=== PATIENT | male | born 1965 | race Hispanic/Latino ===

== ENCOUNTER 2016-03-18 17:07 | Inpatient (IN) | payer SELFPAY ==
--- NOTE | 2016-03-18 18:04 | Emergency Department Report ---
Stated Complaint: LACERATION Time Seen by Provider: 03/18/16 17:59 - HPI History of Present Illness: 50-year-old male comes in by ambulance for having a fall on the [employer]. Security found patient down the hill put him back to the emergency room. Patient is noted to have a large hematoma in the right eyebrow. Some active bleeding nurse applied a 4 x 4. Patient's evaluation in triage patient was noted to start crying and grabbing his chest and his left side of his neck. He shouldn't inform her that he may be going through DTs. He wants to be detoxed - Exam Physical Exam: Patient is alert, noticed a nice hematoma on the right eyebrow is tender to touch. Cardiovascular irregular respiratory clear to auscultation MSE screening note: Focused history and physical exam performed. Due to findings the following was ordered: Patient will have labs and a CAT scan discussed with Dr. Tellez ED Disposition for MSE Condition: Stable
[2016-03-18] MEDS ORDERED: VITAMIN B-1 100 MG, FOLVITE 1 MG, INFUVITE 10 ML in NACL 0.9% 1000 ML 1,000 ML IV ONE (23:13)
[2016-03-18] MEDS ORDERED: XYLOCAINE 1% 20 mL INFILTRATI ONE (23:13)
--- NOTE | 2016-03-18 23:25 | Emergency Department Report ---
HPI - General Chief Complaint: Wound/Laceration Time Seen by Provider: 03/18/16 17:59 - HPI HPI: This is a 50-year-old male who presents to the emergency department via EMS with multiple complaints. Patient had a fall earlier today on a [employer]. It caused a laceration to the right eyebrow. Patient says he remembers the incident and denies any loss of consciousness. The headache, neck pain, vision change or any neurological deficits. Patient also complains of midsternal left-sided chest pain that has started soon as he got on the ambulance. There has been going on since. It is a low aching sensation and radiates towards the left shoulder. Patient has a history of NV in 2014 but denies any stents or previous CABG. Finally, the patient admits to alcohol use today. He says he only has had 2 beers but does appear slightly intoxicated. On top of that he says he has a history of delirium tremens and says he is concerned he may go into DTs again and is hoping for detox. He denies any illicit drug use or abuse. He does not currently have a primary care doctor. ED Past Medical Hx - Medications Home Medications: Home Medications Medication Instructions Recorded Confirmed Last Taken Type No Known Home Medications [No 03/19/16 03/19/16 Unknown History Reported Home Medications] ED Review of Systems ROS: Stated complaint: LACERATION Other details as noted in HPI Comment: All other systems reviewed and negative Constitutional: denies: chills, fever Eyes: denies: eye pain, eye discharge, vision change ENT: denies: ear pain, throat pain Respiratory: denies: cough, shortness of breath, wheezing Cardiovascular: chest pain, palpitations Gastrointestinal: denies: abdominal pain, nausea, diarrhea Genitourinary: denies: urgency, dysuria Musculoskeletal: denies: back pain, joint swelling Skin: denies: rash, lesions Neurological: other (tremors). denies: headache, weakness Physical Exam - Physical Exam Vital Signs: Vital Signs 03/18/16 03/18/16 17:42 21:12 Temperature 97.9 F 97.9 F Pulse Rate 99 H 86 Respiratory 20 18 Rate Blood Pressure 146/98 Blood Pressure 145/94 [Right] O2 Sat by Pulse 98 96 Oximetry Physical Exam: GENERAL: The patient is well-developed well-nourished. Patient is slightly disheveled and appears intoxicated. HEENT: Normocephalic. Extraocular motions are intact. Patient has moist mucous membranes. Pupils equally reactive to light bilaterally. Fatigable horizontal nystagmus. NECK: Supple. Trachea is midline. CHEST/LUNGS: Clear to auscultation. There is no respiratory distress noted. HEART/CARDIOVASCULAR: Regular. There is no tachycardia. There is no gallop rub or murmur. ABDOMEN: Abdomen is soft, nontender. Patient has normal bowel sounds. There is no abdominal distention. SKIN: There is a 2 cm laceration to the right eyebrow that is linear and superficial. No foreign body seen. No current bleeding. NEURO: The patient is awake, alert. The patient is easily agitated. He is sometimes cooperative but often needs redirection. The patient has no focal neurologic deficits. The patient has normal speech. Patient appears intoxicated. MUSCULOSKELETAL: There is no tenderness or deformity. There is no limitation range of motion. There is no evidence of acute injury. ED Course Vital Signs 03/18/16 03/18/16 17:42 21:12 Temperature 97.9 F 97.9 F Pulse Rate 99 H 86 Respiratory 20 18 Rate Blood Pressure 146/98 Blood Pressure 145/94 [Right] O2 Sat by Pulse 98 96 Oximetry - Laceration /Wound Repair Right Face Wound Location: face (Right eyebrow) Wound Length (cm): 2 Wound's Depth, Shape: superficial, linear Wound Explored: clean Anesthesia: 1% Lidocaine Volume Anesthetic (ccs): 2 Wound Repaired With: sutures Suture Size/Type: 6:0, proline Number of Sutures: 5 Layer Closure?: No Sterile Dressing Applied?: Yes ED Medical Decision Making - Lab Data Result diagrams: 03/18/16 23:27 03/18/16 23:27 - EKG Data -: EKG Interpreted by Me EKG shows normal: sinus rhythm, axis, intervals, QRS complexes (q waves to the anterior septal leads.), ST-T waves Rate: normal - EKG Data When compared to previous EKG there are: previous EKG unavailable Interpretation: other (q waves to the anteroseptal leads) - Radiology Data Radiology results: report reviewed, image reviewed interpreted by me: Chest x-ray did not show any acute process. Heart is normal shape and size. No effusions. No pneumothorax. No signs of pneumonia seen. CT of the head does not show any acute process including no hemorrhage, mass, shift, diffuse edema or skull fracture. - Medical Decision Making 50-year-old male presents via EMS after having a fall causing a laceration, with alcohol intoxication, and the complaint of chest pain. Patient says he is already up-to-date with tetanus. Laceration was repaired with simple interrupted sutures. CT of the head did not show any bleed, shift, mass, fracture or any acute process. EKG does not show any signs of ST elevation NV. Chest x-ray does not show any acute process. Patient's blood alcohol level came back 5 times greater than the legal limit at 0.4. He was given IV fluid resuscitation, thiamine and multivitamins. Patient has a history of delirium tremens and complaints of some tremors but does not appear yet to be in DTs and the detox as he is acutely intoxicated. Vital signs stable throughout his ED course. Patient will be admitted to hospital for further IV fluid resuscitation , monitoring while he becomes sober and detoxes, and for further evaluation of his chest discomfort. Patient has been accepted for admission by the hospitalist, Dr gonsalez. - Differential Diagnosis alcohol abuse/intoxication, delirium tremens, NV, costochondritis Critical Care Time: No Critical care attestation.: If time is entered above; I have spent that time in minutes in the direct care of this critically ill patient, excluding procedure time. ED Disposition Clinical Impression: Alcohol abuse, Hypokalemia, Hypokalemia Alcohol intoxication Qualifiers: Complication of substance-induced condition: with unspecified complication Qualified Code(s): F10.129 - Alcohol abuse with intoxication, unspecified Facial laceration Qualifiers: Encounter type: initial encounter Qualified Code(s): S01.81XA - Laceration without foreign body of other part of head, initial encounter Chest pain Qualifiers: Chest pain type: unspecified Qualified Code(s): R07.9 - Chest pain, unspecified Disposition: OP ADMITTED IP TO THIS HOSP Is pt being admited?: Yes Condition: Stable Time of Disposition: 04:31
[2016-03-18 23:57] LABS: Basophils % (Auto) 0.2 % (0.0-1.8); Eosinophils % (Auto) 0.4 % (0.0-4.3); Hematocrit 40.8 % (35.5-45.6); Hemoglobin 13.9 gm/dl (11.8-15.2); Mean Corpuscular HGB Conc 34 % (32-34); Mean Corpuscular Hemoglobin 31 pg (28-32); Mean Corpuscular Volume 92 fl (84-94); Platelet Count 135 K/mm3 (140-440); Red Blood Count 4.43 M/mm3 (3.65-5.03); Red Cell Distribution Width 14.9 % (13.2-15.2); White Blood Count 5.6 K/mm3 (4.5-11.0)
[2016-03-19 00:08] LABS: INR 1.12 (0.87-1.13); Partial Thromboplastin Time 28.3 Sec. (24.2-36.6)
[2016-03-19 00:15] LABS: Creatine Kinase MB 10.6 ng/mL (0.0-4.0)
[2016-03-19 00:18] LABS: Alanine Aminotransferase 44 units/L (7-56); Albumin 4.1 g/dL (3.9-5); Albumin/Globulin Ratio 1.5 %; Alkaline Phosphatase 55 units/L (35-129); Anion Gap 26 mmol/L; BUN/Creatinine Ratio 22.85; Bilirubin,Total 0.4 mg/dL (0.1-1.2); Blood Urea Nitrogen 16 mg/dL (9-20); Calcium 8.1 mg/dL (8.4-10.2); Carbon Dioxide 19 mmol/L (22-30); Chloride 103.2 mmol/L (98-107); Creatine Kinase 787 units/L (55-170); Glucose 85 mg/dL (75-100); Potassium 3.3 mmol/L (3.6-5.0); Sodium 145 mmol/L (137-145); Total Protein 6.9 g/dL (6.3-8.2)
[2016-03-19 00:40] LABS: Urine Drugs of Abuse Note Disclamer
[2016-03-19 00:52] LABS: Bilirubin,Urine NEG (Negative); Blood,Urine SM (Negative); Ketones,Urine TR mg/dL (Negative); Leukocyte Esterase,Urine NEG (Negative); Mucus,Urine FEW /HPF; Nitrite,Urine NEG (Negative); Protein,Urine <15 mg/dL mg/dL (Negative); Urobilinogen,Urine < 2.0 mg/dL (<2.0); WBC,Urine < 1.0 /HPF (0.0-6.0)
[2016-03-19] MEDS ORDERED: K-DUR PO ONE (01:00)
--- NOTE | 2016-03-19 02:17 | Cat Scan Report ---
FINAL REPORT PROCEDURE: CT HEAD/BRAIN WO CON TECHNIQUE: Computerized tomography of the head was performed without contrast material. HISTORY: head trauma, intoxicated COMPARISON: No prior studies are available for comparison. FINDINGS: Skull and scalp: Normal. Paranasal sinuses: Normal. Ventricles and subarachnoid spaces: Normal. Cerebrum: No evidence of hemorrhage, acute infarction or mass. Minimal atrophy is noted.. Cerebellum and brainstem: No evidence of hemorrhage, acute infarction or mass. Vasculature: Normal. Comments: None. IMPRESSION: There is no evidence of an acute intracranial process.
--- NOTE | 2016-03-19 03:31 | History and Physical Report ---
History of Present Illness Date of examination: 03/19/16 Date of admission: 03/19/16 Chief complaint: ETOH abuse, chest pain History of present illness: This is a 50-year-old male presented to the emergency department via EMS after a fall earlier today on a [employer] [place]. Patient developed a laceration to his right eyebrow. Patient states that he remembers the incident and denies any loss of consciousness. Patient denies any headache, neck pain or visual disturbances. Patient reports that he developed midsternal left-sided chest pain that started as soon as he got into the ambulance. Patient states that the pain continued through his initial visit in the emergency department but upon my evaluation currently he is pain free. Patient reports some associated shortness of breath. He denies any nausea, vomiting or diaphoresis. Patient does have a history of [place] in 2013 but denies any stents or previous CABG. Patient reports that he has been using alcohol rather heavily over the past few weeks due to stressful life situations. He reports drinking approximately 1-2 pints of liquor. Patient denies any long time use of alcohol. However, patient reports to the ER physician and not reported to me that he has a history of delirium tremens. Past History Past Medical History: CAD, hypertension, other (TN 2013) Past Surgical History: No surgical history Social history: alcohol abuse Family history: no significant family history Medications and Allergies Allergies Allergy/AdvReac Type Severity Reaction Status Date / Time No Known Allergies Allergy Verified 03/18/16 23:15 Home Medications Medication Instructions Recorded Confirmed Last Taken Type No Known Home Medications [No 03/19/16 03/19/16 Unknown History Reported Home Medications] Review of Systems All systems: negative Exam - Physical Exam Narrative exam: Right eyebrow laceration. Minor superficial linear scratch on top of head - Constitutional Vitals: Temp Pulse Resp BP Pulse Ox 97.9 F 86 20 145/94 100 03/18/16 21:12 03/18/16 21:12 03/18/16 23:46 03/18/16 21:12 03/18/16 23:46 General appearance: Present: no acute distress, well-nourished - EENT Eyes: Present: PERRL ENT: hearing intact, clear oral mucosa - Neck Neck: Present: supple, normal ROM - Respiratory Respiratory effort: normal Respiratory: bilateral: CTA - Cardiovascular Heart Sounds: Present: S1 & S2. Absent: rub, click - Extremities Extremities: pulses symmetrical, No edema Peripheral Pulses: within normal limits - Abdominal General gastrointestinal: Present: soft, non-tender, non-distended, normal bowel sounds Male genitourinary: Present: normal - Integumentary Integumentary: Present: clear, warm, dry - Musculoskeletal Musculoskeletal: gait normal, strength equal bilaterally - Psychiatric Psychiatric: appropriate mood/affect, intact judgment & insight - Neurologic Neurologic: CNII-XII intact, moves all extremities Results - Labs CBC & Chem 7: 03/18/16 23:03/18/16 Labs: Laboratory Last Values WBC 5.6 K/mm3 (4.5-11.0) 03/18/16 RBC 4.43 M/mm3 (3.65-5.03) 03/18/16: Hgb 13.9 gm/dl (11.8-15.2) 03/18/16 Hct 40.8 % (35.5-45.6) 03/18/16: MCV 92 fl (84-94) 03/18/16: MCH 31 pg (28-32) 03/18/16: MCHC 34 % (32-34) 03/18/16: RDW 14.9 % (13.2-15.2) 03/18/16 Plt Count 135 K/mm3 (140-440) L 03/18/16: Lymph % (Auto) 32.0 % (13.4-35.0) 03/18/16: Swain % (Auto) 8.3 % (0.0-7.3) H 03/18/16: Eos % (Auto) 0.4 % (0.0-4.3) 03/18/16 Baso % (Auto) 0.2 % (0.0-1.8) 03/18/16 Lymph # 1.8 K/mm3 (1.2-5.4) 03/18/16 Swain # 0.5 K/mm3 (0.0-0.8) 03/18/16 Eos # 0.0 K/mm3 (0.0-0.4) 03/18/16: Baso # 0.0 K/mm3 (0.0-0.1) 03/18/16 23: Seg Neutrophils % 59.1 % (40.0-70.0) 03/18/16 23: Seg Neutrophils # 3.3 K/mm3 (1.8-7.7) 03/18/16 23: PT 14.3 Sec. (12.2-14.9) 03/18/16 23: INR 1.12 (0.87-1.13) 03/18/16 23: APTT 28.3 Sec. (24.2-36.6) 03/18/16 23:27 Sodium 145 mmol/L (137-145) 03/18/16 23: Potassium 3.3 mmol/L (3.6-5.0) L 03/18/16 23: Chloride 103.2 mmol/L (98-107) 03/18/16 23: Carbon Dioxide 19 mmol/L (22-30) L 03/18/16 23: Anion Gap 26 mmol/L 03/18/16 23:27 BUN 16 mg/dL (9-20) 03/18/16 23: Creatinine 0.7 mg/dL (0.8-1.5) L 03/18/16 23: Estimated GFR > 60 ml/min 03/18/16 23: BUN/Creatinine Ratio 22.85 % 03/18/16 23: Glucose 85 mg/dL (75-100) 03/18/16 23: Calcium 8.1 mg/dL (8.4-10.2) L 03/18/16 23: Total Bilirubin 0.4 mg/dL (0.1-1.2) 03/18/16 23: AST 66 units/L (5-40) H 03/18/16 23: ALT 44 units/L (7-56) 03/18/16 23: Alkaline Phosphatase 55 units/L (35-129) 03/18/16 23: Total Creatine Kinase 787 units/L (55-170) H 03/18/16 23:27 CK-MB (CK-2) 10.6 ng/mL (0.0-4.0) H 03/18/16 23:27 CK-MB (CK-2) Rel Index 1.3 (0-4) 03/18/16 23: Troponin T < 0.010 ng/mL (0.00-0.029) 03/19/16 02:12 Total Protein 6.9 g/dL (6.3-8.2) 03/18/16 23: Albumin 4.1 g/dL (3.9-5) 03/18/16 23: Albumin/Globulin Ratio 1.5 % 03/18/16 23: Lipase 53 units/L (13-60) 03/18/16 23:27 Urine Color Yellow (Yellow) 03/19/16 00:37 Urine Turbidity Clear (Clear) 03/19/16 00:37 Urine pH 5.0 (5.0-7.0) 03/19/16 00:37 Ur Specific [place] 1.011 (1.003-1.030) 03/19/16 00:37 Urine Protein <15 mg/dl mg/dL (Negative) 03/19/16 00:37 Urine Glucose (UA) Neg mg/dL (Negative) 03/19/16 00:37 Urine Ketones Tr mg/dL (Negative) 03/19/16 00:37 Urine Blood Sm (Negative) 03/19/16 00:37 Urine Nitrite Neg (Negative) 03/19/16 00:37 Urine Bilirubin Neg (Negative) 03/19/16 00:37 Urine Urobilinogen < 2.0 mg/dL (<2.0) 03/19/16 00:37 Ur Leukocyte Esterase Neg (Negative) 03/19/16 00:37 Urine WBC (Auto) < 1.0 /HPF (0.0-6.0) 03/19/16 00:37 Urine RBC (Auto) 5.0 /HPF (0.0-6.0) 03/19/16 00:37 Urine Mucus Few /HPF 03/19/16 00:37 Urine Opiates Screen Presumptive negative 03/19/16 00:37 Urine Methadone Screen Presumptive negative 03/19/16 00:37 Ur Barbiturates Screen Presumptive negative 03/19/16 00:37 Ur Phencyclidine Scrn Presumptive negative 03/19/16 00:37 Ur Amphetamines Screen Presumptive negative 03/19/16 00:37 U Benzodiazepines Scrn Presumptive negative 03/19/16 00:37 Urine Cocaine Screen Presumptive negative 03/19/16 00:37 U Marijuana (THC) Screen Presumptive negative 03/19/16 00:37 Drugs of Abuse Note Disclamer 03/19/16 00:37 Plasma/Serum Alcohol 0.39 gm% (0-0.07) H 03/18/16 23:27 Assessment and Plan Assessment and plan: 1. Chest pain. Patient will be placed on the chest pain protocol and follow- up cardiac isoenzymes. Check serial EKGs. Patient will need to be scheduled for Lexiscan/stress thallium evaluation once acute alcoholic intoxication resolves. Sitter cardiology consultation. Obtain old records from [place] where he states he had his [place]. 2. Acute alcoholic intoxication. [facility] protocol 3. EtOH abuse. As above. 4. Hypertension. Resume antihypertensive medications.
[2016-03-19] MEDS ORDERED: ATIVAN IV PRN ×2 (03:36)
[2016-03-19] MEDS ORDERED: SODIUM CHLORIDE FLUSH SYRINGE 10 ML IV PRN (03:36)
[2016-03-19] MEDS ORDERED: TYLENOL PO PRN (03:36)
[2016-03-19] MEDS ORDERED: MILK OF MAGNESIA PO PRN (03:36)
[2016-03-19] MEDS ORDERED: DULCOLAX PR PRN (03:36)
[2016-03-19] MEDS ORDERED: ZOFRAN IV PRN (03:36)
[2016-03-19 04:23] LABS: Creatine Kinase MB 11.2 ng/mL (0.0-4.0)
[2016-03-19 04:24] LABS: Creatine Kinase 788 units/L (55-170)
[2016-03-19 05:57] LABS: Creatine Kinase MB 10.4 ng/mL (0.0-4.0)
[2016-03-19 06:02] LABS: Creatine Kinase 776 units/L (55-170)
--- NOTE | 2016-03-19 09:09 | XRay Report ---
Single view chest: Compared to 07/11/12. History: Chest pain. Findings: Cardiomegaly. Trachea is midline the no consolidation, pneumothorax or pleural effusion. Impression: No acute cardiopulmonary findings.
--- NOTE | 2016-03-19 09:30 | Admit Criteria Form ---
Admission Criteria Documentation: SUBSTANCE ABUSE Clinical Indications for Admission to Inpatient Care (Place 'X' for any and all applicable criteria): Admission is indicated due to ANY ONE of the following(1)(2)(3)(4)(5): [ ]I. Delirium due to alcohol or sedative A withdrawal B ( Also use Delirium Criteria as appropriate)1,6,7 [ ]II. Alcohol or sedative withdrawal with high-risk indicator as manifested by ALL of the following1,3,6,7 [ ]a) Signs of withdrawal as indicated by ANY ONE of the following: [ ]i) Heart rate greater than 100 beats per minute [ ]ii) Nausea or vomiting [ ]iii) Other physical signs of alcohol or sedative withdrawal [ ]iv) Tremor [ ](v) Increased perspiration [ ]b) Elevated risk due to a historical or comorbid factor as indicated by ANY ONE of the following: [ ]i) History of delirium due to alcohol or sedative withdrawal [ ]ii) History of repetitive seizures due to alcohol or sedative withdrawal C [ ]iii) Intrinsic seizure disorder (epilepsy) [ ]iv) [ ]v) Comorbid medical condition that can be dangerously destabilized by alcohol or sedative withdrawal (eg, severe cardiac disease) [ ]III. Severe alcohol or sedative withdrawal that is unmanageable at lower level of care, as manifested by ALL of the following1,3,6,7 [ ]a) Marked signs of withdrawal as indicated by ANY ONE of the following: [ ]i) Heart rate greater than 120 beats per minute [ ]ii) Vomiting [ ]iii) Grossly visible tremor [ ]iv) Profuse perspiration [ ]v) Temperature greater than 38.3 degrees C (101 degrees F) [ ]vi) Other marked physical signs of alcohol or sedative withdrawal [ ]b) Signs of withdrawal which require inpatient treatment as indicated by ANY ONE of the following: [ ]i) Inadequate response to pharmacotherapy in emergency department or other appropriate lower level of care [ ]ii) Lower level of care not feasible or appropriate (eg, unavailable or inappropriate to patient condition or treatment history) [ ]IV. Severely complicated opioid withdrawal that requires [id number] care as manifested by ALL of the following 1,4,7,11 [ ]a) Vomiting or diarrhea due to opioid withdrawal [ ]b) Marked dehydration or electrolyte abnormality that cannot be corrected (to near normal) in an emergency department or other ambulatory setting (eg, serum K<2.5 mEq/L , serum Na <130 mEq/L [X]V. Acute toxicity or instability from substance use requiring inpatient care (eg, altered mental status, respiratory depression) that has had inadequate response to, or is judged inappropriate for, treatment at lower level of care (eg, emergency department, observation care) [ ]. Other inpatient medical or psychiatric care is needed due to risk or comorbidity as indicated by ALL of the following(18): [ ]a) Treatment is needed because of patient risk due to ANY ONE of the following: [ ]i) Medical condition (eg, severe cardiac disease) that requires 24-hour monitoring and treatment due to danger of destabilization by alcohol or sedative withdrawal is present [ ]ii) Imminent danger to self is present due to ANY ONE of the following(19)(20)(21): [ ]1) Imminent risk for recurrence of Suicide attempt or act of serious Harm to self is present as indicated by ALL of the following: [ ]A. There has been very recent Suicide attempt or deliberate act of serious Harm to self. [ ]B. There has not been Sufficient relief of the factors that precipitated the attempt or act. [ ]2) Current plan for suicide or serious Harm to self is present. [ ]3) Command auditory hallucinations for suicide or serious Harm to self are present. [ ]4) Patient has persistent Thoughts of suicide or serious Harm to self that cannot be adequately monitored at lower level of care due to ANY ONE of the following[E]: [ ]A. Insufficient behavioral care is available to meet patient needs (such as required provider or lower level facility is not available). [ ]B. Patient characteristics such as high impulsivity or unreliability are present. [ ]C. Environment does not support recovery. [ ]D. Ready access to lethal means [ ]iii) Imminent danger to others is present due to ANY ONE of the following(19)(23)(24): [ ]1) Imminent risk for recurrence of attempt to seriously Harm another is present as indicated by ALL of the following: [ ]A. There has been very recent attempt to seriously Harm another. [ ]B. There has not been Sufficient relief of factors that precipitated the attempt or act. [ ]2) Current plan for homicide or serious Harm to another is present. [ ]3) Command auditory hallucinations or paranoid delusions contributing to risk for homicide or serious Harm to another are present. [ ]4) Patient has persistent thoughts of homicide or serious Harm to another that cannot be adequately monitored at lower level of care because of ANY ONE of the following[E]: [ ]A. Insufficient behavioral care is available to meet patient needs (such as required provider or lower level facility is not available). [ ]B. High impulsivity or unreliability is present. [ ]C. Environment does not support recovery. [ ]D. Ready access to lethal means [ ]iv) Severe dysfunction in daily living related to substance use disorder as indicated by ANY ONE of the following(33): [ ]a) Extreme deterioration in social interactions (eg , threatening behaviors with little or no provocation) [ ]b) Complete withdrawal from all social interactions [ ]c) Complete neglect of self-care with associated impairment in physical status [ ]d) Extreme disruption in vegetative function (eg, life-sustaining functions such as eating) [ ]e) Complete inability to maintain any appropriate aspect of personal responsibility in any adult roles (eg, occupational, parental ) [ ]v) Other emotional, behavioral, or cognitive symptoms of sufficient severity to preclude ability to engage in recovery without 24-hour monitoring and treatment are present. [ ]vi) Patient requires monitoring due to substance use in combination with medical, psychiatric, or environmental factors that prevent adequate management at lower level of care as indicated by ALL of the following: [ ]1) Significant substance use effects, medical conditions, or psychiatric comorbidities are present as indicated by ANY ONE of the following [ ]A. Substance toxicity or withdrawal requires medical monitoring. [ ]B. Medical comorbidity requires medical monitoring for destabilization due to alcohol or sedative withdrawal. [ ]C. Emotional, behavioral, or cognitive symptoms of sufficient severity to limit or preclude ability to engage in treatment are present. [ ]2) Conditions, barriers, or environmental factors preventing treatment at lower level of care are present as indicated by ANY ONE of the following: [ ]A. Psychiatric comorbidity or opposition to treatment requires 24-hour setting to ensure adherence with medical treatment or adequate motivating interventions. [ ]B. Severe behavioral problems (eg, escalating relapse behaviors, acute psychiatric or substance use crisis, inability to recognize signs and symptoms of relapse ) require 24-hour setting for relapse prevention.[F] [ ]C. Living environment outside of 24-hour setting prevents recovery (eg, abuse, victimization, patient inability to cope). [ ]b Treatment situation and needs are appropriate for inpatient level ( instead of using lower level of care) as indicated by ANY ONE of the following( 25)(26)(27): [ ]i) Patient is unwilling to participate voluntarily and requires treatment (eg, legal commitment) in involuntary unit.(23) [ ]ii) Voluntary treatment at lower level is not feasible (eg, lower level care unavailable or inappropriate for patient condition). [ ]iii) Physical restraint, seclusion, or other involuntary control is needed (eg, actively violent patient for whom treatment in an involuntary unit is deemed necessary in accord with applicable medical and legal criteria).(23) [ ]iv) Atfywe-[id number]-[id number] medical or nursing care to address symptoms and initiate interventions is required; specific need is identified. Extended stay beyond goal length of stay may be needed for: [ ]a) Onset of delirium [ ]b) Recurrent seizures [ ]c) Persistent severe alcohol or sedative withdrawal [ ]d) Persistent dangerous behavior The original [facility] content created by [employer] has been revised. The portions of the content which have been revised are identified through the use of italic text or in bold, and [facility] has neither reviewed nor approved the modified material. All other unmodified content is copyright [facility]. Please see references footnoted in the original [facility] edition 2016 Admission Criteria Met: Yes
[2016-03-19] MEDS: ATIVAN IV PRN ×4 (09:37→21:56)
[2016-03-19] MEDS: NACL 0.9% 1000 ML 1,000 ML IV SCH ×2 (10:40→21:57)
[2016-03-19 10:43] LABS: Creatine Kinase MB 8.7 ng/mL (0.0-4.0)
[2016-03-19 10:45] LABS: Creatine Kinase 774 units/L (55-170)
[2016-03-19] MEDS: LOVENOX SUB-Q SCH ×2 (14:56→16:37)
--- NOTE | 2016-03-19 17:06 | Event Note ---
Date: 03/19/16 And seen and evaluated medical records reviewed Admitted with chest pain and alcohol intoxication Stress test rescheduled for tomorrow Agree with the current management, continue CIWA protocol
[2016-03-20 05:22] LABS: Basophils % (Auto) 0.4 % (0.0-1.8); Eosinophils % (Auto) 1.1 % (0.0-4.3); Hematocrit 40.6 % (35.5-45.6); Hemoglobin 13.5 gm/dl (11.8-15.2); Mean Corpuscular HGB Conc 33 % (32-34); Mean Corpuscular Hemoglobin 31 pg (28-32); Mean Corpuscular Volume 92 fl (84-94); Platelet Count 106 K/mm3 (140-440); White Blood Count 3.3 K/mm3 (4.5-11.0)
[2016-03-20 05:40] LABS: BUN/Creatinine Ratio 23.33; Blood Urea Nitrogen 14 mg/dL (9-20); Calcium 8.4 mg/dL (8.4-10.2); Carbon Dioxide 26 mmol/L (22-30); Chloride 104.9 mmol/L (98-107); Glucose 100 mg/dL (75-100); Potassium 3.6 mmol/L (3.6-5.0); Sodium 143 mmol/L (137-145)
[2016-03-20 05:52] LABS: Anion Gap 16 mmol/L
[2016-03-20] MEDS: ATIVAN IV PRN ×2 (06:48→09:26)
[2016-03-20] MEDS: LOVENOX SUB-Q SCH (09:30)
[2016-03-20] MEDS ORDERED: BABY ASPIRIN PO SCH (10:00)
[2016-03-20] MEDS ORDERED: ZESTRIL PO SCH (10:00)
[2016-03-20] MEDS ORDERED: COREG PO SCH (10:00)
[2016-03-20] MEDS ORDERED: LEXISCAN IV ONE ×2 (10:50→10:53)
--- NOTE | 2016-03-20 13:14 | Treadmill Report ---
THALLIUM STRESS TEST LEFT VENTRICLE: Left ventricular chamber size is within normal. Perfusion study demonstrates homogeneous uptake of the tracer in all segment, no significant defects identified. Gated analysis is suboptimal, calculates left ventricular ejection fraction of 49%. CONCLUSION: This is normal perfusion study. Recommend echocardiographic reassessment of left ventricular systolic function. JOB# [id number] CA/NTS
--- NOTE | 2016-03-20 14:17 | Discharge Summary ---
Providers - Providers Date of Admission: 03/19/16 03:37 Date of discharge: 03/20/16 Attending physician: URSZULA BARAJAS 03/19/16 08:51 Consult to Wound/ET Nurse [CONS] Routine Reason For Exam: wound eval Primary care physician: SALES SERVICE COORDINATOR Hospitalization Reason for admission: chest pain/alcohol intoxication Condition: Stable Pertinent studies: Chest x-ray; no acute cardiopulmonary abnormality noted CT head without contrast; no acute intracranial abnormality noted Hospital course: Chest pain and alcohol intoxication 50-year-old male patient with significant past medical history of coronary artery disease hypertension not on any medications was admitted through emergency room with the history of fall on [employer] bus per ED note, sustained laceration of right eyebrow which was sutured, patient was admitted to the hospital symptomatically managed, closely monitor for any alcohol withdrawal symptoms and was placed on CIWA protocol Complained of some vague chest pain, OR screen 3 within normal limits except for elevated CK Subsequently underwent thallium stress test which was negative for reversible ischemia, an left ventricular function 49-55% Patient was counseled the importance of adhering to the treatment plan Also counseled to quit alcohol intake, advised alcohol rehabilitation and advised to follow [facility] supportive group 2 days comfortable in bed no new complaint denies chest pain shortness of breath Vital signs stable [id number] evaluation physical examination done by me prior to discharge unremarkable as detailed below Patient is hemodynamically and clinically stable for discharge and does not need any further acute inpatient care the time of discharge Advised suture removal in 7 days' time [place] 10 days, also given prescription for Keflex I spent 32 minutes coordinating this discharge Disposition: DISCHARGED TO HOME OR SELFCARE Time spent for discharge: 32 min Core Measure Documentation - Palliative Care Palliative Care/ Comfort Measures: Not Applicable - Core Measures Any of the following diagnoses?: none Exam - Constitutional Vitals: Temp Pulse Resp BP Pulse Ox 98.2 F 85 18 122/97 95 03/20/16 07:40 03/20/16 11:55 03/20/16 07:40 03/20/16 11:55 03/20/16 07:40 General appearance: Present: no acute distress, well-nourished - EENT Eyes: Present: PERRL, EOM intact - Neck Neck: Present: supple, normal ROM - Respiratory Respiratory effort: normal Respiratory: negative: rales, rhonchi, wheezing - Cardiovascular Rhythm: regular Heart Sounds: Present: S1 & S2 - Extremities Extremities: no ischemia, pulses intact, pulses symmetrical Peripheral Pulses: within normal limits - Abdominal General gastrointestinal: Present: soft, non-tender, non-distended, normal bowel sounds - Integumentary Integumentary: Present: clear, warm - Musculoskeletal Musculoskeletal: strength equal bilaterally, generalized weakness - Psychiatric Psychiatric: appropriate mood/affect, cooperative - Neurologic Neurologic: CNII-XII intact, moves all extremities Plan Activity: no restrictions, no driving until cleared by PCP, fall precautions Diet: regular Additional Instructions: Suture removal after 7 days at primary care physician office/health. Department, keep the wound dry. Strongly advised to quit alcohol intake, seek alcohol rehabilitation, attend [facility] supportive group. Advised not to drive or operate heavy machinery under the influence of alcohol, patient verbalized understanding Follow up with: PRIMARY CARE, [Primary Care Provider] - 7 Days Prescriptions: Cephalexin [Keflex] 500 mg PO Q8HR #15 cap Folic Acid 1 tab PO QDAY #30 tab Thiamine [Vitamin B-1] 100 mg PO QDAY #30 tablet
[2016-03-20 20:49] VITALS: BP 138/87
== END 2016-03-20 20:00 | disposition home or self-care (01) | DRG 897 ==
LOC: ED 17:07 → 3A 03-19 03:37
PROVIDERS: ADMIT Hospitalist; ATTEND Internal Medicine
PROC: 0HQ1XZZ Repair Face Skin, External Approach (ICD-10-PCS; principal; 2016-03-19)
DX: F10.129 Alcohol abuse with intoxication, unspecified (principal); I10 Essential (primary) hypertension; R07.9 Chest pain, unspecified; E87.6 Hypokalemia; S01.111A Laceration without foreign body of right eyelid and periocular area, initial encounter; I25.10 Atherosclerotic heart disease of native coronary artery without angina pectoris; V79.9XXA Bus occupant (driver) (passenger) injured in unspecified traffic accident, initial encounter; Y93.9 Activity, unspecified; Y92.9 Unspecified place or not applicable; I25.2 Old myocardial infarction; Z71.41 Alcohol abuse counseling and surveillance of alcoholic
CPT/HCPCS: 36415; 70450; 71010; 78452; 80048; 80053; 80061; 80307; 80320; 81001; 82550; 82553; 83690; 84484; 85025; 85610; 85730; 93005; 93010; 93017; 96374; A9502; G0480; J1650; J2060; J2785; J3411; J7030

== ENCOUNTER 2017-03-06 06:18 | Emergency (ER) | payer SELFPAY ==
[2017-03-06] MEDS ORDERED: ASPIRIN PO ONE (15:36)
[2017-03-06 15:52] LABS: Hematocrit 38.7 % (35.5-45.6); Hemoglobin 12.9 gm/dl (11.8-15.2); Mean Corpuscular HGB Conc 33 % (32-34); Mean Corpuscular Hemoglobin 31 pg (28-32); Mean Corpuscular Volume 93 fl (84-94); Platelet Count 151 K/mm3 (140-440); Red Blood Count 4.17 M/mm3 (3.65-5.03); Red Cell Distribution Width 15.5 % (13.2-15.2)
[2017-03-06 16:04] VITALS: BP 151/96
[2017-03-06 16:12] LABS: BUN/Creatinine Ratio 17; Blood Urea Nitrogen 12 mg/dL (9-20); Calcium 8.8 mg/dL (8.4-10.2); Hemolysis Index 16
[2017-03-06 16:24] LABS: Basophils % (Manual) 0 % (0.0-1.8); Eosinophils % (Manual) 0 % (0.0-4.3); Total Cells Counted 100
--- NOTE | 2017-03-06 16:24 | Cat Scan Report ---
FINAL REPORT PROCEDURE: CT head without contrast. TECHNIQUE: Computerized tomography of the head was performed without contrast material. HISTORY: Headache. COMPARISON: CT head 03/18/2016. FINDINGS: There is mild cerebral atrophy. There is minimal evidence of chronic ischemic white matter disease. There are no mass lesions. There is no intracranial hemorrhage. The calvarium appears intact. The mastoid air cells and visualized paranasal sinuses are well aerated. IMPRESSION: Normal study for age.
[2017-03-06 16:25] LABS: Anisocytosis 1+; Platelet Estimate Consistent w Auto; Poikilocytosis 1+
== END 2017-03-06 20:00 | disposition left against medical advice (07) ==
LOC: ED 06:18
DX: R11.2 Nausea with vomiting, unspecified (principal); R53.1 Weakness; Z53.21 Procedure and treatment not carried out due to patient leaving prior to being seen by health care provider
CPT/HCPCS: 36415; 70450; 80048; 84484; 85007; 85025; 93005; 93010